=== PATIENT | female | born 1990 | race Caucasian/White ===

== ENCOUNTER 2016-11-05 20:52 | Emergency (ER) | payer OTHER ==
[~2016-11-05] VITALS: Ht 157.5 cm; Wt 80.5 kg
[2016-11-05 20:58] VITALS: Ht 157.5 cm; Wt 80.5 kg
--- NOTE | 2016-11-05 21:17 | ERA ---
ER Documentation Chief Complaint Date/Time DATE: 11/05/16 TIME: 21:13 Chief Complaint redness/swelling inside nose x 3 days HPI This is a 26-year-old female with a chief complaint of red bump under the left nostril. Patient states that she had a bump under the right nostril 1-2 months ago but spontaneously resolved after popping. Patient denies fever, chills, nausea, vomiting, diarrhea, constipation, headache or other areas affected. Vaccination status up-to-date. No recent travel. No medical conditions or daily medications. Denies IV drug use or alcohol abuse ROS All systems reviewed and are negative except as per history of present illness. Medications Home Meds Active Scripts Sulfamethoxazole/Trimethoprim* (Bactrim Ds* Tablet) 1 Each Tablet, 1 TAB PO BID , #14 TAB Prov:HAKEEM GRANT PA-C 11/05/16 Cephalexin* (Keflex*) 500 Mg Capsule, 500 MG PO QID for 5 Days, CAP Prov:HAKEEM GRANT PA-C 11/05/16 Allergies Allergies: Coded Allergies: Penicillins (Verified Allergy, Unknown, sob, 11/05/16) Physical Exam Vitals Vital Signs Date Time Temp Pulse Resp B/P Pulse Ox O2 Delivery O2 Flow Rate FiO2 11/05/16 20:58 99.5 84 20 141/87 99 Physical Exam Const: Well-appearing overweight 26-year-old female no acute distress Head: Atraumatic Eyes: Normal Conjunctiva ENT: As noted in the skin exam. No septal deviation. Moist pink mucous membranes. Normal External Ears and Mouth. Neck: Full range of motion..~ No meningismus. Resp: Clear to auscultation bilaterally Cardio: Regular rate and rhythm, no murmurs Abd: Soft, non tender, non distended. Normal bowel sounds Skin: 5 mm erythematous with ill-defined borders most consistent with cellulitis versus abscess under the left nostril. No petechiae or rashes Back: No midline or flank tenderness Ext: No cyanosis, or edema Neur: Awake and alert Psych: Normal Mood and Affect Procedures/MDM This is a 26-year-old female with a chief complaint of rash under the left nostril. The area is most consistent with cellulitis versus abscess. There is no fluctuance and do not believe that that needs to be drained at this time. Patient will be discharged with antibiotics and return precautions. I recommended [id number] ibuprofen for pain management. At this time of little suspicion for spreading cellulitis/systemic involvement, infection spreading to the [employer], cavernous sinus thrombosis, meningitis, lymphangitis, or other serious bacterial illness. I have spoke with the patient regarding their condition and future management. They have verbally responded that they understand their status and treatment plan. The patients vitals are stable, and their current condition is appropriate for discharge. The patient will be given discharge instructions with return precautions. Discharge medications: Keflex, Bactrim I have spoke to the patient she says that she does not have a reaction to amoxicillin, Keflex or Bactrim. Departure Diagnosis: Primary Impression: Cellulitis Qualified Code: L03.211 - Cellulitis of face Condition: Stable Additional Instructions: Follow up with your PCP within the next 1-3 days for a more thorough evaluation and a possible referral to a specialist. Return the the emergency department immediately if symptoms worsen or change. If you have any questions regarding medications, ask your pharmacist or us before you leave. If any adverse reactions occur while taking your medications, discontinue the treatment and return to the emergency department immediately. Take your medications as directed, and complete the entire course of treatment. HAKEEM GRANT PA-C Nov 05, 2016 21:17
[2016-11-05] MEDS ORDERED: SULF1TAB31 PO (21:18)
[2016-11-05] MEDS ORDERED: CEPH-443 PO (21:18)
== END 2016-11-05 21:25 | disposition home or self-care (01) ==
LOC: FTE 20:52
DX: L03.211 Cellulitis of face (principal)
CPT/HCPCS: 99284